=== PATIENT | male | born 2000 | race Hispanic/Latino ===

== ENCOUNTER 2025-02-23 12:28 | Emergency (ER) | payer OTHER ==
--- OUTSIDE RECORDS SUMMARY | 2025-02-23 12:31 | XMS REPORT | Continuity of Care Document ---
Author Name Unknown Address [address] [facility] [address] [place] [address] [facility] [place] Address [address] [facility] [address] [place] [address] Care Team Providers Care Logistics Loss Prevention Manager Name Role Phone Adama Louis Attending Clinician Unavailable Problems Condition Name Condition Details Condition Category Status Onset Date Resolution Date Last Treatment Date Treating Clinician Comments Source [id number] Seasonal allergies Problem [facility] [id number] Tension headache Problem [facility] Social History Social Habit Start Date Stop Date Quantity Comments Source History of Tobacco Use [facility] Sex Assigned At [facility] Smoking Status Start Date Stop Date Source Never Smoker [facility] Medications Ordered Medication Name Filled Medication Name Start Date Stop Date Current Medication? Ordering Clinician Indication Dosage Frequency Signature (SIG) Comments Components Source No Known Medications No Known Medications No [facility] Vital Signs Vital Name Observation Time Observation Value Comments S ource height 2024-06-14 10:00:00 71.00 [in_i] Com [facility] weight 2024-06-14 10:00:00 173.8 [lb_av] Co mmon [facility] temperature 2024-06-14 10:00:00 97.7 [degF] Com [facility] bmi 2024-06-14 10:00:00 24.24 kg/m2 Comm on [facility] oximetry 2024-06-14 10:00:00 100 % Commo n [facility] blood pressure systolic 2024-06-14 10:00:00 130 mm[Hg] [facility] blood pressure diastolic 2024-06-14 10:00:00 75 mm[Hg] [facility] Encounters Start Date/Time End Date/Time Encounter Type Admission Type Attending [facility] Care Department Encounter ID Source 2024-07-17 08:33:01 Outpatient Louis Galan [facility] [id number] [facility] 2024-06-14 09:08:01 Outpatient Louis Galan [facility] [id number] [facility] 2024-06-14 00:00:00 2024-06-14 00:00:00 OFFICE VISIT NEW PT LEVEL 3 [facility] [id number] [facility]
[2025-02-23] MEDS ORDERED: KETOROLAC 30 MG/ML INJ ONE (13:19)
[2025-02-23] MEDS ORDERED: HYDROCODONE/APAP 10/325 TAB ONE (13:19)
--- NOTE | 2025-02-23 14:28 | EDPHYS ---
Physician Documentation [facility] Name: Mg Cullen Age: 24 yrs Sex: Male : 2000 Arrival Date: 02/23/2025 Time: 12:28 Bed 18 Private MD: ED Physician Ousmane Cullen HPI: 02/23 13:10 This 24 yrs old Male presents to ER via Wheelchair with complaints of Foot michael Injury. Historical: - Allergies: 12:37 No Known Allergies; ll1 - PMHx: 12:37 None; ll1 - Immunization history:: Adult Immunizations up to date. - Infectious Disease History:: Denies. - Social history:: Smoking status: unknown. ROS: 13:10 Constitutional: Negative for fever, chills, and weight loss, Eyes: Negative for injury, michael pain, redness, and discharge, ENT: Negative for injury, pain, and discharge, Neck: Negative for injury, pain, and swelling, Cardiovascular: Negative for chest pain, palpitations, and edema, Respiratory: Negative for shortness of breath, cough, wheezing, and pleuritic chest pain, Abdomen/GI: Negative for abdominal pain, nausea, vomiting, diarrhea, and constipation, Back: Negative for injury and pain, : Negative for injury, bleeding, discharge, and swelling, Skin: Negative for injury, rash, and discoloration, Neuro: Negative for headache, weakness, numbness, tingling, and seizure, Psych: Negative for depression, anxiety, suicide ideation, homicidal ideation, and hallucinations, Allergy/Immunology: Negative for hives, rash, and allergies, Endocrine: Negative for neck swelling, polydipsia, polyuria, polyphagia, and marked weight changes, Hematologic/Lymphatic: Negative for swollen nodes, abnormal bleeding, and unusual bruising, 13:10 MS/extremity: Positive for injury or acute deformity, decreased range of motion, pain, swelling, tenderness, of the right ankle, Exam: 13:10 Constitutional: This is a well developed, well nourished patient who is awake, alert, michael and in no acute distress. Head/Face: Normocephalic, atraumatic. Eyes: Pupils equal round and reactive to light, extra-ocular motions intact. Lids and lashes normal. Conjunctiva and sclera are non-icteric and not injected. Cornea within normal limits. Periorbital areas with no swelling, redness, or edema. ENT: Nares patent. No nasal discharge, no septal abnormalities noted. Tympanic membranes are normal and external auditory canals are clear. Oropharynx with no redness, swelling, or masses, exudates, or evidence of obstruction, uvula midline. Mucous membranes moist. Neck: Trachea midline, no thyromegaly or masses palpated, and no cervical lymphadenopathy. Supple, full range of motion without nuchal rigidity, or vertebral point tenderness. No Meningismus. Chest/axilla: Normal chest wall appearance and motion. Nontender with no deformity. No lesions are appreciated. Cardiovascular: Regular rate and rhythm with a normal S1 and S2. No gallops, murmurs, or rubs. Normal PMI, no JVD. No pulse deficits. Respiratory: Lungs have equal breath sounds bilaterally, clear to auscultation and percussion. No rales, rhonchi or wheezes noted. No increased work of breathing, no retractions or nasal flaring. Abdomen/GI: Soft, non-tender, with normal bowel sounds. No distension or tympany. No guarding or rebound. No evidence of tenderness throughout. Back: No spinal tenderness. No costovertebral tenderness. Full range of motion. Skin: Warm, dry with normal turgor. Normal color with no rashes, no lesions, and no evidence of cellulitis. Neuro: Awake and alert, GCS 15, oriented to person, place, time, and situation. Cranial nerves II-XII grossly intact. Motor strength 5/5 in all extremities. Sensory grossly intact. Cerebellar exam normal. Normal gait. Psych: Awake, alert, with orientation to person, place and time. Behavior, mood, and affect are within normal limits. 13:10 Musculoskeletal/extremity: ROM: intact in all extremities, limited active range of motion due to pain, limited passive range of motion due to pain, in the right ankle, Circulation is intact in all extremities. Sensation intact. Compartment Syndrome exam of affected extremity: is normal. Weight bearing: can bear weight with assistance only, assistance, DVT Exam: pain, swelling, tenderness, of the right leg, of the right ankle, Vital Signs: 12:40 BP 142 / 71; Pulse 68; Resp 16; Temp 97.8(O); Pulse Ox 100% on R/A; Weight 81.65 kg; em1 Height 5 ft. 11 in. ; Pain 7/10; 13:45 BP 133 / 81; Pulse 64; Resp 18; Pulse Ox 100% on R/A; kj2 14:30 BP 130 / 78; Pulse 62; Resp 18; Temp 98; Pulse Ox 100% ; kj2 12:40 Body Mass Index 25.10 (81.65 kg, 180.34 cm) em1 12:40 Pain Scale: Adult em1 MDM: 12:35 Medical Screening Exam initiated [facility] 13:14 Differential diagnosis: fracture, sprain, gout, cellulitis. Data reviewed: vital signs, [facility] nurses notes, radiologic studies, plain films. Consideration of Admission/Observation Escalation of care including admission/observation considered. I considered the following discharge prescriptions or medication management in the emergency department Medications were administered in the Emergency Department. See MAR. Independent interpretation of the following test(s) in the Emergency Department X-Ray: My interpretation is right ankle. Test considered but Not performed: Labs: no labs. Care significantly affected by the following chronic conditions: none. 02/23 13:06 Order name: Ankle Right [address] [facility] 02/23 13:06 Order name: Ice pack; Complete Time: 13:14 michael 02/23 13:06 Order name: Walking boot; Complete Time: 13:[address] [facility] Administered Medications: 13:27 Drug: Ketorolac IM 60 mg IM once Route: IM; Site: left deltoid; kj2 13:28 Not Given (Physician Discretion): norco10 mg-325 mg 1 tabs PO once kj2 Disposition Summary: 02/23/25 14:27 Discharge Ordered Notes: Location: Home [facility] Problem: new michael Symptoms: have improved michael Condition: Stable michael Diagnosis - Sprain of ankle michael - Sprain of calcaneofibular ligament of right ankle michael - Sprain of other ligament of right ankle michael Followup: michael - With: Private Physician - When: 2 - 3 days - Reason: Recheck today's complaints, Re-evaluation by your physician Followup: michael - With: Carlos Villafuerte MD - When: 2 - 3 days - Reason: Recheck today's complaints, Re-evaluation by your physician Discharge Instructions: - Discharge Summary Sheet michael - Ankle Sprain michael - Ankle Sprain, [id number] michael - Ankle Pain michael Forms: - Medication Reconciliation Form michael - Antibiotic Education michael - Prescription Opioid Use michael - Patient Portal Instructions michael - Leadership Thank You Letter michael - Work release form kj2 Prescriptions: - Diclofenac Sodium 75 mg Oral Tablet Sustained Release - take 1 tablet ORAL route 2 times per day; 30 tablet; Refills: 0, Product [facility] Selection Permitted - Tylenol-Codeine #3 300mg-30mg Oral tablet - take 2 tablets ORAL route every 6 hours As needed; 16 tablet; Refills: 0, [facility] Product Selection Permitted Signatures: Dispatcher [employer] Ousmane Yates MD MD cha Lewis, Lynsay, RN RN ll1 Tashia Duncan RN RN kj2
--- NOTE | 2025-02-23 14:28 | ER ---
Nurse's Notes [facility] Name: Mg Cullen Age: 24 yrs Sex: Male : 2000 Arrival Date: 02/23/2025 Time: 12:28 Bed 18 Private MD: Diagnosis: Sprain of ankle;Sprain of calcaneofibular ligament of right ankle;Sprain of other ligament of right ankle Presentation: 02/23 12:38 Coronavirus screen: Client denies travel out of the [place] in the last 14 days. At this ll1 time, the client does not indicate any symptoms associated with coronavirus-19. Ebola Screen: Patient denies travel to an Ebola-affected area in the 21 days before illness onset. Initial Sepsis Screen: Does the patient meet any 2 criteria? No. Patient's initial sepsis screen is negative. Does the patient have a suspected source of infection? No. Patient's initial sepsis screen is negative. Risk Assessment: Do you want to hurt yourself or someone else? Patient reports no desire to harm self or others. 12:38 Method Of Arrival: Wheelchair ll1 12:46 Chief complaint: Patient states: pain in right foot. Onset of symptoms was February 23, kj2 2024. 12:46 Acuity: NICANOR 3 kj2 Triage Assessment: 12:45 Musculoskeletal: Reports pain in right foot. kj2 14:34 Injury Description: patient unaware of what caused the foot pain. kj2 Historical: - Allergies: 12:37 No Known Allergies; ll1 - PMHx: 12:37 None; ll1 - Immunization history:: Adult Immunizations up to date. - Infectious Disease History:: Denies. - Social history:: Smoking status: unknown. Screenin:43 [facility] ED Fall Risk Assessment (Adult) History of falling in the last 3 months, kj2 including since admission No falls in past 3 months (0 pts) Confusion or Disorientation No (0 pts) Intoxicated or Sedated No (0 pts) Impaired Gait No (0 pts) Mobility Assist Device Used No (0 pt) Altered Elimination No (0 pt) Score/Fall Risk Level 0 - 2 = Low Risk Maintained a safe environment, Hourly rounding (assess needs \T\ fall precautionary measures) done. Abuse screen: Denies threats or abuse. Denies injuries from another. Nutritional screening: No deficits noted. Tuberculosis screening: No symptoms or risk factors identified. Assessment: 12:41 General: Appears in no apparent distress. Behavior is cooperative. Pain: Complains of kj2 pain in right foot Pain currently is 8 out of 10 on a pain scale. Neuro: Level of Consciousness is awake, alert, obeys commands, Oriented to person, place, time, situation. Cardiovascular: Patient's skin is warm and dry. Respiratory: Airway is patent Respiratory effort is even, unlabored. GI: No signs and/or symptoms were reported involving the gastrointestinal system. : No signs and/or symptoms were reported regarding the genitourinary system. 13:45 Reassessment: Patient appears in no apparent distress at this time. Patient and/or kj2 family updated on plan of care and expected duration. Pain level reassessed. Patient is alert, oriented x 3, equal unlabored respirations, skin warm/dry/pink. 14:30 Reassessment: Patient appears in no apparent distress at this time. Patient and/or kj2 family updated on plan of care and expected duration. Pain level reassessed. Patient is alert, oriented x 3, equal unlabored respirations, skin warm/dry/pink. Vital Signs: 12:40 BP 142 / 71; Pulse 68; Resp 16; Temp 97.8(O); Pulse Ox 100% on R/A; Weight 81.65 kg; em1 Height 5 ft. 11 in. ; Pain 7/10; 13:45 BP 133 / 81; Pulse 64; Resp 18; Pulse Ox 100% on R/A; kj2 14:30 BP 130 / 78; Pulse 62; Resp 18; Temp 98; Pulse Ox 100% ; kj2 12:40 Body Mass Index 25.10 (81.65 kg, 180.34 cm) em1 12:40 Pain Scale: Adult em1 ED Course: 12:34 Patient arrived in ED. al6 12:35 Ousmane Cullen MD is Attending Physician. michael 12:37 Arm band placed on Patient placed in an exam room, on a stretcher. ll1 12:41 Tashia Duncan, RENEE is Primary Nurse. kj2 12:44 Patient has correct armband on for positive identification. Bed in low position. Call kj2 light in reach. Adult w/ patient. Provided Education on: call light. 12:46 Triage completed. kj2 14:27 Carlos Villafuerte MD is Referral Physician. [facility] 14:32 Ankle Right 3 View XRAY In Process Unspecified. EDMS 14:33 No provider procedures requiring assistance completed. Patient did not have IV access kj2 during this emergency room visit. Administered Medications: 13:27 Drug: Ketorolac IM 60 mg IM once Route: IM; Site: left deltoid; kj2 13:28 Not Given (Physician Discretion): norco10 mg-325 mg 1 tabs PO once kj2 Medication: 12:45 VIS not applicable for this client. kj2 Outcome: 14:27 Discharge ordered by . [facility] 14:33 Discharged to home via wheelchair, with family, kj2 14:33 Condition: stable 14:33 Discharge instructions given to patient, family, Instructed on discharge instructions, follow up and referral plans. Demonstrated understanding of instructions, follow-up care, medications, Prescriptions given X 2, 14:43 Patient left the ED. ll1 Signatures: Dispatcher [employer] EDMA Ousmane Cullen MD MD cha Martinez, Eric em1 Lilly Concepcion, RENEE RN ll1 Tashia Duncan, RENEE RN kj2 Richa [place]6
--- NOTE | 2025-02-23 14:47 | RAD REPORT ---
EXAM:Ankle Right 3 View CLINICAL HISTORY: Ankle pain FINDINGS: No acute fracture or dislocation seen. Bony density with a sclerotic border between the lateral malleolus and talus probably chronic. Lateral soft tissue swelling
[2025-02-23 14:54] VITALS: BP 130/78; TEMP 98; O2SAT 100
== END 2025-02-23 14:43 | disposition home or self-care (01) ==
LOC: ER 12:28
DX: S93.411A Sprain of calcaneofibular ligament of right ankle, initial encounter (principal)
CPT/HCPCS: 96372; 99284